=== PATIENT | female | born 1970 | race Caucasian/White ===

== ENCOUNTER 2017-04-03 07:49 | Emergency (ER) | payer SELFPAY ==
[~2017-04-03] VITALS: Ht 162.6 cm; Wt 108.0 kg
[~2017-04-03 07:49] MED LIST: CEPH500C3 PO
[2017-04-03 07:51] VITALS: BP 125/65; PULSE 71; RESP 16; TEMP 98; O2SAT 98
[2017-04-03] MEDS ORDERED: predniSONE 20 MG TAB PO ONE (08:15)
--- NOTE | 2017-04-03 08:20 | PD ---
HPI Chief Complaint: Cold / Flu Symptoms Time Seen by Provider: 08:00 Travel History International Travel<30 days: No Contact w/Intl Traveler<30days: No Traveled to known affect area: No History of Present Illness HPI 46yo F with no significant PMH presents to the ED with c/o cough and congestion for 1 week. Pt states she started left ear pain radiating to left face today. Denies any throat pain, fever, n/v, abdominal pain, sob, diarrhea. Pt states midsternal chest pain only with cough. Able to eat and drink normally. PFSH Past Medical History Hx Anticoagulant Therapy: No Diabetes: No Ulcer: Yes (PEPTIC) Tetanus Vaccination: > 5 Years Influenza Vaccination: No ?: Not Tubal Ligation: Yes Past Surgical History Appendectomy: Yes Cholecystectomy: Yes Tonsillectomy: Yes Social History Alcohol Use: Yes (occ.) Tobacco Use: Yes (1/2 PPD) Substance Use: No Allergies-Medications (Allergen,Severity, Reaction): Coded Allergies: No Known Allergies (Unverified , 04/03/17) Reported Meds & Prescriptions Reported Meds & Active Scripts Active No Active Prescriptions or Reported Medications Review of Systems Except as stated in HPI: all other systems reviewed are Neg Physical Exam Narrative GENERAL: 46yo F in mild distress. SKIN: Focused skin assessment warm/dry. HEAD: Atraumatic. Normocephalic. +TTP left maxilla. +TTP left frontal sinus. EYES: Pupils equal and round at 3mm bilaterally. No scleral icterus. No injection or drainage. ENT: No nasal bleeding or discharge. Mucous membranes pink and moist. NECK: +TTP cervical lymph nodes on left. CARDIOVASCULAR: Regular rate and rhythm. No murmur appreciated. RESPIRATORY: No accessory muscle use. Mild inspiratory wheeze. GASTROINTESTINAL: Abdomen soft, non-tender, nondistended. No rebound tenderness or guarding. MUSCULOSKELETAL: No obvious deformities. No clubbing. No cyanosis. No edema. NEUROLOGICAL: Awake and alert. No obvious cranial nerve deficits. Motor grossly within normal limits. Normal speech. PSYCHIATRIC: Appropriate mood and affect; insight and judgment normal. Data Data Last Documented VS Vital Signs Date Time Temp Pulse Resp B/P Pulse Ox O2 Delivery O2 Flow Rate FiO2 04/03/17 09:21 80 16 121/61 94 Room Air 04/03/17 07:51 98.0 Orders Chest, Single Ap (04/03/17 ) Electrocardiogram (04/03/17 ) Albuterol-Ipratropium Neb (Duoneb Neb) (04/03/17 08:15) Prednisone (Deltasone) (04/03/17 08:15) Guaifen-Cod 200-20 Mg/10ml Liq (Robituss (04/03/17 08:45) Amoxicillin (Trimox) (04/03/17 10:00) Amoxicil-Clavulanate (Augmentin) (04/03/17 10:00) [facility] Medical Decision Making Medical Screen Exam Complete: Yes Emergency Medical Condition: Yes Interpretation(s) EKG: NSR 65bpm. Normal axis. No ST segment elevation or depression. TWI III. Differential Diagnosis URI vs. sinusitis vs. pneumonia Narrative Course 46yo F with symptoms consistent with URI and sinusitis. Pt is tender in left maxilla and left frontal sinus. Also has some wheezes and is a chronic cigarette smoker so given duonebs and prednisone. States that her breathing and cough has improved after the treatments. Better air movement. Still with mild end expiratory wheezing now. Speaking in complete sentences. Also give robitussin with codeine. Pt has not tried any antibiotics so will give augmentin for sinusitis. Pt given first dose here and instructed pt to return if symptoms do not improve within 24-48 hours. CXR showed mild interstitial prominence of unknown chronicity given lack of prior exams. Pt may have developing interstitial pneumonia but I am already covering her with antibiotics. Will try outpatient treatment first. I informed her I would prefer augmentin but she said that she cant afford it so I will prescribe amoxicillin since it is on the [employer] list and pt is able to get this antibiotic. Return precautions given. Diagnosis Primary Impression: Sinusitis Qualified Code: J01.00 - Acute non-recurrent maxillary sinusitis Patient Instructions: General Instructions Departure Forms: Tests/Procedures Additional Instructions: Please follow up with primary care physician in 1-2 days. Return to the ED immediately if symptoms worsen. Med/Other Pt SpecificInfo: Prescription(s) given Scripts Acetaminophen (Tylenol)325 Mg [id number] Mg PO Q6H PRN (PAIN SCALE 1 TO 4) #20 TAB Ref 0 Prov:Patricia Grigsby DO 04/03/17 Prednisone (Deltasone)20 Mg Tab20 Mg PO BID 5 Days Ref 0 Prov:Patricia Grigsby DO 04/03/17 Albuterol 18 GM Inh (Ventolin Hfa 18 GM Inh)90 Mcg/Act Aer2 Puff INH Q4H PRN ( SHORTNESS OF BREATH) #1 INHALER Ref 0 Prov:Patricia Grigsby DO 04/03/17 Amoxicillin 875 Mg [id number] Mg PO BID 7 Days Ref 0 Prov:Patricia Grigsby DO 04/03/17 Disposition: 01 DISCHARGE HOME Condition: Stable Patricia Grigsby DO Apr 03, 2017 08:20
[2017-04-03] MEDS: RESP: ALBUTEROL 2.5 MG/IPRATROPIUM 0.5 MG NEB (SCH) INH (08:29)
[2017-04-03] MEDS ORDERED: guaiFENesin/CODEINE SYRUP 200 MG/20 MG/10 ML CUP PO ONE (08:45)
--- NOTE | 2017-04-03 09:09 | RADRPT ---
EXAM DATE/TIME: 04/03/2017 08:51 [place] COMPARISON: No previous studies available for comparison. INDICATIONS : Cough and short of breath for 1 week. MEDICAL HISTORY : None. SURGICAL HISTORY : None. ENCOUNTER: Initial ACUITY: 1 week PAIN SCORE: 2/10 LOCATION: Bilateral chest FINDINGS: Mild diffuse interstitial prominence without focal pleural or parenchymal opacities. Cardiomediastina l contours are within normal limits. Bony thorax is intact. CONCLUSION: 1. Mild interstitial prominence of unknown chronicity given lack of prior exams. This may be accentua michelle by portable technique. Differential considerations include developing interstitial pneumonia in t he appropriate clinical setting. Consider formal PA and lateral views of the chest with maximal inspi ratory effort for better characterization. Gary Young MD on April 03, 2017 at 9:05 Board Certified Radiologist. This report was verified electronically.
[2017-04-03 09:21] VITALS: BP 121/61; PULSE 80; RESP 16; O2SAT 94
[2017-04-03] MEDS ORDERED: VENTAER INH (10:00)
[2017-04-03] MEDS ORDERED: AMOXICILLIN/CLAVULANATE K 875 MG TAB PO ONE (10:00)
[2017-04-03] MEDS ORDERED: PRED-503 PO (10:00)
[2017-04-03] MEDS ORDERED: AMOXICILLIN 875 MG TAB PO ONE (10:00)
[2017-04-03] MEDS ORDERED: AMOX875T PO (10:00)
[2017-04-03] MEDS ORDERED: TYLE325T PO (10:00)
--- NOTE | 2017-04-03 12:39 | EKG ---
Date Performed: 04/03/2017 Time Performed: 08:27:49 PTAGE: 46 years EKG: Sinus rhythm NORMAL ECG NO PREVIOUS TRACING DOCTOR: Ulises Buck Interpretating Date/Time 04/03/2017 12:37:20
== END 2017-04-03 10:19 | disposition home or self-care (01) ==
LOC: PHED 07:49
DX: J01.00 Acute maxillary sinusitis, unspecified (principal); H92.02 Otalgia, left ear; F17.210 Nicotine dependence, cigarettes, uncomplicated; R06.02 Shortness of breath
CPT/HCPCS: 71010; 93005; 94640; 94664; 99284; J7512

== ENCOUNTER 2018-02-10 11:05 | Emergency (ER) | payer SELFPAY ==
[~2018-02-10] VITALS: Ht 165.1 cm; Wt 134.0 kg
[~2018-02-10 11:05] MED LIST changes: +AMOX875T PO; -CEPH500C3 PO; +PRED-503 PO; +TYLE325T PO; +VENTAER INH
[2018-02-10 11:11] VITALS: BP 145/65; PULSE 85; RESP 16; TEMP 98.5; O2SAT 97
--- NOTE | 2018-02-10 11:52 | PD ---
HPI Chief Complaint: Pain: Acute or Chronic Time Seen by Provider: 11:38 Travel History International Travel<30 days: No Contact w/Intl Traveler<30days: No Traveled to known affect area: No History of Present Illness HPI 47-year-old female complains of pain and swelling right lower leg and posterior aspect of right ankle. Patient states that his symptoms started 2 weeks ago. Patient stated pain burning pain sharp pain most severe on the posterior aspect of the right ankle with pain radiata to the right lower leg. Patient also complains of swelling on the right lower leg also. Patient states the pain and swelling is worse at night. Patient denies any chest pain or shortness of breath. Patient denies abdominal pain. Patient denies any injury to the right leg. Patient denies history of gouty arthritis. Patient denies any fever chills. Patient denies history of DVT or PE. Patient had a Mirena IUD in place. Patient denies any history of prolonged travel by car or airplane. Patient denies any history of coagulation problem. PFSH Past Medical History Hx Anticoagulant Therapy: No Diabetes: No Ulcer: Yes (PEPTIC) Tetanus Vaccination: > 5 Years Influenza Vaccination: No ?: Not LMP: MIRENA IUD IN PLACE Tubal Ligation: Yes Past Surgical History Appendectomy: Yes Cholecystectomy: Yes Tonsillectomy: Yes Social History Alcohol Use: Yes (occ.) Tobacco Use: Yes (/2 PPD) Substance Use: No Allergies-Medications (Allergen,Severity, Reaction): Coded Allergies: No Known Allergies (Unverified Adverse Reaction, Unknown, 02/10/18) Reported Meds & Prescriptions Reported Meds & Active Scripts Active Review of Systems General / Constitutional: No: Fever Eyes: No: Visual changes HENT: No: Headaches Cardiovascular: No: Chest Pain or Discomfort Respiratory: No: Shortness of Breath Gastrointestinal: No: Abdominal Pain Genitourinary: No: Dysuria Musculoskeletal: Positive: Edema, Pain Skin: No Rash Neurologic: No: Weakness Psychiatric: No: Depression Endocrine: No: Polydipsia Hematologic/Lymphatic: No: Easy Bruising Physical Exam Narrative GENERAL: Well-nourished, well-developed patient. SKIN: Focused skin assessment warm/dry. HEAD: Normocephalic. EYES: No scleral icterus. No injection or drainage. NECK: Supple, trachea midline. No JVD or lymphadenopathy. CARDIOVASCULAR: Regular rate and rhythm without murmurs, gallops, or rubs. RESPIRATORY: Breath sounds equal bilaterally. No accessory muscle use. GASTROINTESTINAL: Abdomen soft, non-tender, nondistended. MUSCULOSKELETAL: Patient has soft tissue swelling with mild diffuse tenderness of the right lower leg. Moderate to severe tenderness on palpation of the right Achilles tendon and posterior aspect the right ankle joint. Full range of motion of the toes. No redness no heat noted. Good DP pulse. BACK: Nontender without obvious deformity. No CVA tenderness. Data Data Last Documented VS Vital Signs Date Time Temp Pulse Resp B/P (MAP) Pulse Ox O2 Delivery O2 Flow Rate FiO2 02/10/18 12:28 71 17 138/81 (100) 97 Room Air 02/10/18 11:11 98.5 Orders Orders Complete Blood Count With Diff (02/10/18 11:45) Basic Metabolic Panel (Bmp) (02/10/18 11:45) Prothrombin Time / Inr (Pt) (02/10/18 11:45) Act Partial Throm Time (Ptt) (02/10/18 11:45) Iv Access Insert/Monitor (02/10/18 11:45) Us Leg Venous Doppler (02/10/18 11:45) Ankle, Complete (Ukp0aml) (02/10/18 11:45) Dexamethasone Inj (Decadron Inj) (02/10/18 13:30) Ketorolac Inj (Toradol Inj) (02/10/18 13:30) Ed Discharge Order (02/10/18 13:17) Labs Laboratory Tests Test 02/10/18 11:55 White Blood Count 7.5 TH/MM3 Red Blood Count 4.96 MIL/MM3 Hemoglobin 13.9 GM/DL Hematocrit 45.3 % Mean Corpuscular Volume 91.3 FL Mean Corpuscular Hemoglobin 28.1 PG Mean Corpuscular Hemoglobin Concent 30.8 % Red Cell Distribution Width 12.6 % Platelet Count 325 TH/MM3 Mean Platelet Volume 8.2 FL Neutrophils (%) (Auto) 62.9 % Lymphocytes (%) (Auto) 26.8 % Monocytes (%) (Auto) 6.5 % Eosinophils (%) (Auto) 3.3 % Basophils (%) (Auto) 0.5 % Neutrophils # (Auto) 4.8 TH/MM3 Lymphocytes # (Auto) 2.0 TH/MM3 Monocytes # (Auto) 0.5 TH/MM3 Eosinophils # (Auto) 0.2 TH/MM3 Basophils # (Auto) 0.0 TH/MM3 CBC Comment DIFF FINAL Differential Comment Prothrombin Time 10.3 SEC Prothromb Time International Ratio 1.0 RATIO Activated Partial Thromboplast Time 25.0 SEC Blood Urea Nitrogen 16 MG/DL Creatinine 0.75 MG/DL Random Glucose 101 MG/DL Calcium Level 8.8 MG/DL Sodium Level 136 MEQ/L Potassium Level 4.1 MEQ/L Chloride Level 104 MEQ/L Carbon Dioxide Level 26.9 MEQ/L Anion Gap 5 MEQ/L Estimat Glomerular Filtration Rate 83 ML/MIN MDM Medical Decision Making Medical Screen Exam Complete: Yes Emergency Medical Condition: Yes Interpretation(s) Last Impressions Lower Extremity Ultrasound 02/10/18 1145 Signed Impressions: CONCLUSION: 1. No DVT. 2. Breen's cyst. Ankle X-Ray 02/10/18 1145 Signed Impressions: CONCLUSION: Diffuse subcutaneous edema. No acute osseous abnormality is identified. 1313 p.m. CBC within normal limits. BMP within normal limits. Differential Diagnosis Differential diagnosis including tendinitis, DVT, cellulitis, abscess. Narrative Course 47-year-old female with right lower leg pain and swelling and severe pain right Achilles tendon area. Diagnosis Primary Impression: Achilles tendinitis Qualified Codes: M76.61 - Achilles tendinitis, right leg Additional Impression: Dependent edema Patient Instructions: General Instructions Additional Instructions: Ice pack as needed. Take medication as directed. Follow-up with orthopedist. Return if worse. Keep legs elevated. Med/Other Pt SpecificInfo: Prescription(s) given Scripts Meloxicam (Mobic) 15 Mg Tab 15 MG PO DAILY for Pain, #20 TAB 0 Refills Prov: Yassine Calle MD 02/10/18 Disposition: 01 DISCHARGE HOME Condition: Stable Yassine Calle MD Feb 10, 2018 11:52
[2018-02-10 12:02] LABS: AUTOMATED NEUTROPHIL # 4.8 TH/MM3 (1.8-7.7); BASOPHIL % 0.5 % (0.0-2.0); EOSINOPHIL # 0.2 TH/MM3 (0-0.4); EOSINOPHIL % 3.3 % (0.0-4.0); HEMATOCRIT 45.3 % (35.0-46.0); HEMOGLOBIN 13.9 GM/DL (11.6-15.3); LYMPH % 26.8 % (9.0-44.0); MEAN CELL VOLUME 91.3 FL (80.0-100.0); MEAN CORPUSCULAR HEMOGLOBIN 28.1 PG (27.0-34.0); MEAN CORPUSCULAR HGB CONC 30.8 % (32.0-36.0); MEAN PLATELET VOLUME 8.2 FL (7.0-11.0); MONO % 6.5 % (0.0-8.0); MONOCYTE # 0.5 TH/MM3 (0-0.9); NEUT % 62.9 % (16.0-70.0); PLATELET COUNT 325 TH/MM3 (150-450); RED BLOOD COUNT 4.96 MIL/MM3 (4.00-5.30); RED CELL DISTRIBUTION WIDTH 12.6 % (11.6-17.2); WHITE BLOOD COUNT 7.5 TH/MM3 (4.0-11.0)
[2018-02-10 12:13] LABS: BICARBONATE 26.9 MEQ/L (21.0-32.0); CALCIUM 8.8 MG/DL (8.5-10.1)
[2018-02-10 12:15] LABS: PROTHROMBIN TIME - PATIENT 10.3 SEC (9.8-11.6)
[2018-02-10 12:17] LABS: CREATININE 0.75 MG/DL (0.50-1.00)
[2018-02-10 12:28] VITALS: BP 138/81; PULSE 71; RESP 17; O2SAT 97
--- NOTE | 2018-02-10 12:40 | RADRPT ---
EXAM DATE: 02/10/2018 12:23 PM EDT AGE/SEX: 47 years / Female INDICATIONS: Right leg pain. CLINICAL DATA: This is the patient's initial encounter. Patient reports that signs and symptoms have been present for 1 month and indicates a pain score of 6/10. MEDICAL/SURGICAL HISTORY: . Right leg pain. . Tonsillectomy. Cholecystectomy. Appendectomy. COMPARISON: No prior exams available for comparison. TECHNIQUE: Venous ultrasound of both lower extremities was performed from the inguinal ligament to t he proximal calf. Real-time, color Doppler and spectral tracing, compression and augmentation techni ques were used. FINDINGS: There is normal compressibility of the deep venous system from the inguinal region to the proximal ca lf. No echogenic clot is seen in the lumen of the common femoral, femoral, popliteal, and posterior tibial veins. There is a normal response of the venous system to proximal and distal augmentation an d respiration. There is a cystic area in the popliteal fossa measuring 7.1 x 4.6 x 3.0 cm. CONCLUSION: 1. No DVT. 2. Breen's cyst. Electronically signed by: Jhon Carrillo MD 02/10/2018 12:38 PM EDT
--- NOTE | 2018-02-10 13:03 | RADRPT ---
EXAM DATE: 02/10/2018 12:34 PM EDT AGE/SEX: 47 years / Female INDICATIONS: Right posterior ankle pain, no known injury. CLINICAL DATA: This is the patient's initial encounter. Patient reports that signs and symptoms have been present for 3 weeks and indicates a pain score of 8/10. MEDICAL/SURGICAL HISTORY: None. . Right foot, lymph node removal. COMPARISON: No prior [facility] exams available for comparison. FINDINGS: 3 views of the right ankle demonstrate no fracture or dislocation. Ankle mortise is intact. There are small enthesophytes at the posterior and plantar aspect of the calcaneus. There is diffuse subcutane ous edema bilaterally. Distal Achilles tendon does not appear thickened. No radiopaque foreign body i s seen. CONCLUSION: Diffuse subcutaneous edema. No acute osseous abnormality is identified. Electronically signed by: Jhon Diaz MD 02/10/2018 1:02 PM EDT
[2018-02-10] MEDS ORDERED: MOBI15TA PO (13:19)
[2018-02-10] MEDS ORDERED: DEXAMETHASONE SOD PHOS 4 MG/ML VIAL IV PUSH ONE (13:30)
[2018-02-10] MEDS ORDERED: KETOROLAC TROMETHAMINE 30 MG/ML (IVP) VIAL IV PUSH ONE (13:30)
== END 2018-02-10 13:47 | disposition home or self-care (01) ==
LOC: PHED 11:05
DX: M76.61 Achilles tendinitis, right leg (principal); R60.9 Edema, unspecified; M71.21 Synovial cyst of popliteal space [Baker], right knee; F17.200 Nicotine dependence, unspecified, uncomplicated; Z87.11 Personal history of peptic ulcer disease
CPT/HCPCS: 73610; 80048; 85025; 85610; 85730; 93971; 96374; 96375; 99285; J1100; J1885